=== PATIENT | male | born 1955 | race Caucasian/White ===

== ENCOUNTER 2017-05-16 14:43 | Emergency (ER) | payer MEDICAID ==
[~2017-05-16] VITALS: Ht 167.6 cm; Wt 68.5 kg
[2017-05-16 14:44] VITALS: BP 146/95
== END 2017-05-16 16:16 | disposition home or self-care (01) ==
LOC: ED 16:00
DX: S62.633A Displaced fracture of distal phalanx of left middle finger, initial encounter for closed fracture (principal); S50.01XA Contusion of right elbow, initial encounter; S52.044A Nondisplaced fracture of coronoid process of right ulna, initial encounter for closed fracture; I10 Essential (primary) hypertension; Z72.89 Other problems related to lifestyle; W19.XXXA Unspecified fall, initial encounter; Y93.89 Activity, other specified; Y92.89 Other specified places as the place of occurrence of the external cause; Y99.8 Other external cause status
CPT/HCPCS: 29130